=== PATIENT | female | born 1970 | race Caucasian/White ===

== ENCOUNTER 2019-10-24 19:46 | Inpatient (IN) | payer OTHER, SELFPAY ==
[~2019-10-24] VITALS: Ht 172.7 cm; Wt 131.5 kg
[2019-10-24 19:46] VITALS: BP_SYST 85
[~2019-10-24 19:46] MED LIST: MEPERIDINE HCL/PF 100 MG/ML AMP IM ONE; MIDAZOLAM HCL 5 MG/5 ML VIAL IVP ONE; NS IRRIG SOLN 1000 ML IR ONE; PROPOFOL 200MG/ 20ML VIAL (DIPRIVAN) IV ONE; SEVOFLURANE 15 MIN GAS INH ONE; fentaNYL CITRATE/PF 100 MCG/2 ML AMP IVP ONE
[2019-10-24] MEDS ORDERED: PIPERACILLIN/TAZO 3.38 GM in D5W 50 ML IV ONE (20:00)
[2019-10-24] MEDS ORDERED: VANCOMYCIN HCL 1,000 MG in D5W 250 ML IV ONE (20:00)
[2019-10-24] MEDS ORDERED: NS 1000 ML IV.SOLN IV ONE (20:00)
[2019-10-24 20:15] LABS: BILIRUBIN,URINE NEGATIVE (NEGATIVE); BLOOD, URINE 1+ (NEGATIVE); CLARITY/URINE TURBID (CLEAR); COLOR,URINE YELLOW (YELLOW); GLUCOSE,URINE 3+ (NEGATIVE); KETONES,URINE NEGATIVE (NEGATIVE); LEUKOCYTE ESTERASE ,URINE 1+ (NEGATIVE); NITRITE, URINE NEGATIVE (NEGATIVE); PH,URINE 5.5 (5.0-8.0); PROTEIN URINE 2+ (NEGATIVE); UROBILINOGEN,URINE 0.2 (0.2-1.0)
[2019-10-24 20:17] LABS: BASOPHILS # (AUTO) 0.1 K/uL (0.0-0.2); BASOPHILS % (AUTO) 0.4 % (0.0-2.0); EOSINOPHILS # (AUTO) 0.2 K/uL (0.0-0.4); EOSINOPHILS % (AUTO) 0.8 % (0.0-4.0); HEMATOCRIT 39.9 % (36-48); HEMOGLOBIN 12.9 g/dL (12.0-16.0); LYMPHOCYTES # (AUTO) 2.9 K/uL (1.0-5.5); LYMPHOCYTES % (AUTO) 15.5 % (20.5-51.5); MEAN CORPUSCULAR HEMOGLOBIN 29 pg (27-31); MEAN CORPUSCULAR HGB CONC 32 % (32-36); MEAN CORPUSCULAR VOLUME 91 fL (79.0-98.0); MONOCYTES # (AUTO) 0.7 K/uL (0.0-1.0); MONOCYTES % (AUTO) 3.8 % (1.7-9.3); NEUTROPHILS # (AUTO) 14.7 K/uL (1.8-7.7); NEUTROPHILS % (AUTO) 79.5 % (40.0-70.0); PLATELET COUNT (AUTO) 358 K/uL (130-430); RED BLOOD CELL COUNT(AUTO) 4.39 MIL/uL (4.2-6.2); RED CELL DISTRIBUTION WIDTH 13.4 % (9.0-15.0); WHITE BLOOD COUNT (AUTO) 18.5 K/uL (4.8-10.8)
[2019-10-24 20:26] LABS: BACTERIA,URINE MANY /HPF (None Seen); RBC,URINE 0-3 /HPF (0-3); WBC,URINE >100 /HPF (0-3)
[2019-10-24 20:26] LABS: CREATININE 2.96 mg/dL (0.55-1.30); POTASSIUM 4.7 mmol/L (3.5-5.1)
[2019-10-24 20:27] LABS: ALBUMIN 2.5 g/dL (3.4-4.8); TOTAL BILIRUBIN 0.9 mg/dL (0.0-1.0)
[2019-10-24 20:27] LABS: URINE AMORPHOUS URATE 3+ /HPF (None Seen)
[2019-10-24] MEDS ORDERED: VANCOMYCIN HCL 1000 MG/VIAL IV ONE (20:30)
[2019-10-24] MEDS ORDERED: PIPERACILLIN/TAZOBACTAM 3.375 GM/VIAL (ZOSYN) IV ONE (20:30)
[2019-10-24 20:35] LABS: PROTHROMBIN TIME 10.5 SECS (9.5-12.5)
[2019-10-24] MEDS ORDERED: MAGNESIUM SULFATE 50 ML IV ONE (20:45)
[2019-10-24] MEDS ORDERED: ONDANSETRON HCL 4 MG/2 ML VIAL IVP PRN (23:00)
[2019-10-24] MEDS ORDERED: ACETAMINOPHEN 325 MG TABLET PO PRN (23:00)
[2019-10-24] MEDS ORDERED: INSULIN ASPART 100 UNITS/ML, 10 ML VIAL SUBCUT ONE (23:00)
[2019-10-24] MEDS ORDERED: FAMOTIDINE 20 MG TABLET PO ONE (23:00)
[2019-10-24] MEDS ORDERED: ZOLPIDEM TARTRATE 5 MG TABLET PO PRN (23:30)
[2019-10-24] MEDS ORDERED: INSULIN Lispro 100 UNITS/ML VIAL (humaLOG) ONE (23:38)
[2019-10-25 00:16] VITALS: BP_SYST 101
[2019-10-25] MEDS: NACL 0.9% 1,000 ML IV SCH ×3 (01:15→20:27)
[2019-10-25] MEDS ORDERED: INSULIN Lispro 100 UNITS/ML VIAL (humaLOG) SUBCUT ONE (01:30)
[2019-10-25] MEDS: PIPERACILLIN/TAZOBACTAM 2.25 GM in NS 50 ML IV SCH ×4 (02:05→17:23)
[2019-10-25] MEDS ORDERED: PIPERACILLIN/TAZOBACTAM 2.25 GM VIAL IV ONE (02:08)
[2019-10-25] MEDS ORDERED: MORPHINE 2 MG/ML INJ. SYRINGE IVP PRN (03:00)
[2019-10-25] MEDS: HYDROcodone/ACETAMIN 5-325 MG TAB (NORCO/ VICODIN) PO PRN ×2 (03:25→09:05)
[2019-10-25] MEDS: INSULIN LISPRO SLIDING SCALE 100 UNITS/ML VIAL (humaLOG) SUBCUT PRN ×4 (06:54→22:35)
[2019-10-25 07:23] LABS: BASOPHILS # (AUTO) 0.1 K/uL (0.0-0.2); BASOPHILS % (AUTO) 0.4 % (0.0-2.0); EOSINOPHILS # (AUTO) 0.4 K/uL (0.0-0.4); EOSINOPHILS % (AUTO) 2.7 % (0.0-4.0); HEMATOCRIT 35.2 % (36-48); HEMOGLOBIN 11.5 g/dL (12.0-16.0); LYMPHOCYTES # (AUTO) 2.6 K/uL (1.0-5.5); LYMPHOCYTES % (AUTO) 18.5 % (20.5-51.5); MEAN CORPUSCULAR HEMOGLOBIN 29 pg (27-31); MEAN CORPUSCULAR HGB CONC 33 % (32-36); MEAN CORPUSCULAR VOLUME 89 fL (79.0-98.0); MONOCYTES # (AUTO) 0.4 K/uL (0.0-1.0); MONOCYTES % (AUTO) 3.1 % (1.7-9.3); NEUTROPHILS # (AUTO) 10.7 K/uL (1.8-7.7); NEUTROPHILS % (AUTO) 75.3 % (40.0-70.0); PLATELET COUNT (AUTO) 307 K/uL (130-430); RED BLOOD CELL COUNT(AUTO) 3.95 MIL/uL (4.2-6.2); RED CELL DISTRIBUTION WIDTH 13.6 % (9.0-15.0); WHITE BLOOD COUNT (AUTO) 14.2 K/uL (4.8-10.8)
[2019-10-25 07:40] LABS: ALBUMIN 2.1 g/dL (3.4-4.8); CALCIUM 8.1 mg/dL (8.4-11.0); CREATININE 2.18 mg/dL (0.55-1.30); POTASSIUM 3.7 mmol/L (3.5-5.1); THYROID STIMULATING HORMONE 0.43 uIu/mL (0.34-4.82); TOTAL BILIRUBIN 0.4 mg/dL (0.0-1.0)
[2019-10-25] MEDS ORDERED: INSULIN GLARGINE 100 UNITS/ML 10 ML VIAL SUBCUT ONE ×3 (08:15→22:30)
[2019-10-25 12:10] VITALS: BP_SYST 110
[2019-10-25] MEDS ORDERED: ALBUTEROL SULFATE 0.083% 2.5 MG/3 ML VIAL.NEB INH PRN (15:45)
[2019-10-25] MEDS ORDERED: ALPRAZolam 0.25 MG TABLET PO PRN (16:00)
[2019-10-25 18:55] VITALS: BP_SYST 114
[2019-10-25 19:00] VITALS: BP_SYST 99
[2019-10-25 20:00] VITALS: BP_SYST 99
[2019-10-25] MEDS: LINEZOLID 300 ML IV SCH (21:33)
[2019-10-26] VITALS: BP_SYST 98
[2019-10-26] MEDS ORDERED: cloNIDine HCL 0.1 MG TABLET PO PRN (00:15)
[2019-10-26] MEDS: PIPERACILLIN/TAZOBACTAM 2.25 GM in NS 50 ML IV SCH ×2 (00:21→06:07)
[2019-10-26 06:00] VITALS: BP_SYST 98
[2019-10-26] MEDS: NACL 0.9% 1,000 ML IV SCH ×2 (06:07→16:46)
[2019-10-26] MEDS: INSULIN LISPRO SLIDING SCALE 100 UNITS/ML VIAL (humaLOG) SUBCUT PRN ×4 (06:12→21:00)
[2019-10-26 07:30] LABS: BASOPHILS # (AUTO) 0.1 K/uL (0.0-0.2); BASOPHILS % (AUTO) 0.5 % (0.0-2.0); EOSINOPHILS # (AUTO) 0.5 K/uL (0.0-0.4); EOSINOPHILS % (AUTO) 4.6 % (0.0-4.0); HEMATOCRIT 34.3 % (36-48); HEMOGLOBIN 11.2 g/dL (12.0-16.0); LYMPHOCYTES % (AUTO) 17.6 % (20.5-51.5); MEAN CORPUSCULAR HEMOGLOBIN 29 pg (27-31); MEAN CORPUSCULAR HGB CONC 33 % (32-36); MEAN CORPUSCULAR VOLUME 89 fL (79.0-98.0); MONOCYTES # (AUTO) 0.3 K/uL (0.0-1.0); MONOCYTES % (AUTO) 2.7 % (1.7-9.3); NEUTROPHILS # (AUTO) 8.3 K/uL (1.8-7.7); NEUTROPHILS % (AUTO) 74.6 % (40.0-70.0); PLATELET COUNT (AUTO) 279 K/uL (130-430); RED BLOOD CELL COUNT(AUTO) 3.86 MIL/uL (4.2-6.2); RED CELL DISTRIBUTION WIDTH 13.6 % (9.0-15.0); WHITE BLOOD COUNT (AUTO) 11.1 K/uL (4.8-10.8)
[2019-10-26 07:38] LABS: CALCIUM 8.1 mg/dL (8.4-11.0); CREATININE 1.74 mg/dL (0.55-1.30); POTASSIUM 3.7 mmol/L (3.5-5.1); TOTAL BILIRUBIN 0.3 mg/dL (0.0-1.0)
[2019-10-26 08:00] VITALS: BP_SYST 94
[2019-10-26] MEDS ORDERED: INSULIN GLARGINE 100 UNITS/ML 10 ML VIAL SUBCUT ONE (09:15)
[2019-10-26] MEDS: LINEZOLID 300 ML IV SCH ×2 (09:59→21:05)
[2019-10-26] MEDS ORDERED: PIPERACILLIN/TAZOBACTAM 3.375 GM/ D5W 50 ML IV SCH ×2 (12:00)
[2019-10-26 12:15] VITALS: BP_SYST 118
[2019-10-26 16:15] VITALS: BP_SYST 96
[2019-10-26] MEDS: MORPHINE SULFATE 10 MG/ML VIAL IVP PRN (17:07)
[2019-10-26] MEDS: cefTRIAXone 1 GM in D5W 50 ML IV SCH (17:34)
[2019-10-26] MEDS: INSULIN GLARGINE 100 UNITS/ML 10 ML VIAL SUBCUT SCH (18:34)
[2019-10-26 20:30] VITALS: BP_SYST 97
[2019-10-27 00:03] VITALS: BP_SYST 118
[2019-10-27] MEDS: NACL 0.9% 1,000 ML IV SCH ×3 (03:20→22:15)
[2019-10-27] MEDS ORDERED: MAG-AL HYDROX/SIMETH 30 ML UDC PO ONE (06:00)
[2019-10-27] MEDS: INSULIN LISPRO SLIDING SCALE 100 UNITS/ML VIAL (humaLOG) SUBCUT PRN ×4 (06:25→21:45)
[2019-10-27 07:00] LABS: BASOPHILS # (AUTO) 0.1 K/uL (0.0-0.2); BASOPHILS % (AUTO) 0.6 % (0.0-2.0); EOSINOPHILS # (AUTO) 0.5 K/uL (0.0-0.4); EOSINOPHILS % (AUTO) 3.8 % (0.0-4.0); HEMATOCRIT 35.7 % (36-48); HEMOGLOBIN 11.8 g/dL (12.0-16.0); LYMPHOCYTES % (AUTO) 16.9 % (20.5-51.5); MEAN CORPUSCULAR HEMOGLOBIN 30 pg (27-31); MEAN CORPUSCULAR HGB CONC 33 % (32-36); MEAN CORPUSCULAR VOLUME 89 fL (79.0-98.0); MONOCYTES # (AUTO) 0.3 K/uL (0.0-1.0); MONOCYTES % (AUTO) 2.7 % (1.7-9.3); NEUTROPHILS # (AUTO) 9.2 K/uL (1.8-7.7); PLATELET COUNT (AUTO) 289 K/uL (130-430); RED BLOOD CELL COUNT(AUTO) 4.01 MIL/uL (4.2-6.2); RED CELL DISTRIBUTION WIDTH 13.3 % (9.0-15.0); WHITE BLOOD COUNT (AUTO) 12.1 K/uL (4.8-10.8)
[2019-10-27 07:27] LABS: ALBUMIN 2.1 g/dL (3.4-4.8); CALCIUM 8.5 mg/dL (8.4-11.0); CREATININE 1.55 mg/dL (0.55-1.30); POTASSIUM 4.2 mmol/L (3.5-5.1); TOTAL BILIRUBIN 0.2 mg/dL (0.0-1.0)
[2019-10-27 08:00] VITALS: BP_SYST 125
[2019-10-27] MEDS: INSULIN GLARGINE 100 UNITS/ML 10 ML VIAL SUBCUT SCH (08:00)
[2019-10-27] MEDS ORDERED: INSULIN GLARGINE 100 UNITS/ML 10 ML VIAL SUBCUT SCH ×2 (09:00→21:00)
[2019-10-27] MEDS: LINEZOLID 300 ML IV SCH ×2 (10:14→21:45)
[2019-10-27] MEDS: CITALOPRAM HYDROBROMIDE 20 MG TABLET PO SCH (10:15)
[2019-10-27 12:00] VITALS: BP_SYST 120
[2019-10-27 15:02] VITALS: BP_SYST 120
[2019-10-27 16:30] VITALS: BP_SYST 130
[2019-10-27] MEDS: cefTRIAXone 1 GM in D5W 50 ML IV SCH (16:51)
[2019-10-27 20:20] VITALS: BP_SYST 129
[2019-10-27] MEDS: INSULIN GLARGINE 100 UNITS/ML 10 ML VIAL SQ SCH (21:45)
[2019-10-28 00:58] VITALS: BP_SYST 120
[2019-10-28] MEDS: INSULIN LISPRO SLIDING SCALE 100 UNITS/ML VIAL (humaLOG) SUBCUT PRN ×4 (06:39→21:23)
[2019-10-28 08:00] VITALS: BP_SYST 143
[2019-10-28] MEDS ORDERED: INSULIN GLARGINE 100 UNITS/ML 10 ML VIAL SUBCUT SCH (08:00)
[2019-10-28] MEDS: INSULIN GLARGINE 100 UNITS/ML 10 ML VIAL SQ SCH (08:13)
[2019-10-28] MEDS: LINEZOLID 300 ML IV SCH ×2 (08:13→22:09)
[2019-10-28] MEDS: CITALOPRAM HYDROBROMIDE 20 MG TABLET PO SCH (08:13)
[2019-10-28] MEDS: NACL 0.9% 1,000 ML IV SCH ×2 (08:27→15:27)
[2019-10-28 12:01] VITALS: BP_SYST 116
[2019-10-28] MEDS: cefTRIAXone 1 GM in D5W 50 ML IV SCH (16:27)
[2019-10-28 16:31] VITALS: BP_SYST 124
[2019-10-28 20:00] VITALS: BP_SYST 119
[2019-10-28] MEDS: NYSTATIN 15 GM TOPICAL POWDER TP SCH (21:16)
[2019-10-28] MEDS: INSULIN GLARGINE 100 UNITS/ML 10 ML VIAL SUBCUT SCH (21:22)
[2019-10-28] MEDS ORDERED: LINEZOLID 300 ML IV ONE (21:53)
[2019-10-29 00:26] VITALS: BP_SYST 91
[2019-10-29] MEDS: NACL 0.9% 1,000 ML IV SCH ×2 (03:06→20:30)
[2019-10-29] MEDS: INSULIN LISPRO SLIDING SCALE 100 UNITS/ML VIAL (humaLOG) SUBCUT PRN ×4 (06:20→20:30)
[2019-10-29 06:24] LABS: ALBUMIN 2.1 g/dL (3.4-4.8); BASOPHILS # (AUTO) 0.1 K/uL (0.0-0.2); BASOPHILS % (AUTO) 0.7 % (0.0-2.0); CALCIUM 8.3 mg/dL (8.4-11.0); CREATININE 1.09 mg/dL (0.55-1.30); EOSINOPHILS # (AUTO) 0.3 K/uL (0.0-0.4); EOSINOPHILS % (AUTO) 3.5 % (0.0-4.0); HEMATOCRIT 34.3 % (36-48); HEMOGLOBIN 11.5 g/dL (12.0-16.0); LYMPHOCYTES # (AUTO) 1.9 K/uL (1.0-5.5); MEAN CORPUSCULAR HEMOGLOBIN 29 pg (27-31); MEAN CORPUSCULAR HGB CONC 33 % (32-36); MEAN CORPUSCULAR VOLUME 88 fL (79.0-98.0); MONOCYTES # (AUTO) 0.3 K/uL (0.0-1.0); MONOCYTES % (AUTO) 3.2 % (1.7-9.3); NEUTROPHILS # (AUTO) 7.3 K/uL (1.8-7.7); NEUTROPHILS % (AUTO) 73.6 % (40.0-70.0); PLATELET COUNT (AUTO) 272 K/uL (130-430); POTASSIUM 3.6 mmol/L (3.5-5.1); RED CELL DISTRIBUTION WIDTH 13.1 % (9.0-15.0); TOTAL BILIRUBIN 0.2 mg/dL (0.0-1.0); WHITE BLOOD COUNT (AUTO) 9.9 K/uL (4.8-10.8)
[2019-10-29 08:00] VITALS: BP_SYST 91
[2019-10-29] MEDS: LINEZOLID 300 ML IV SCH ×2 (08:21→20:14)
[2019-10-29] MEDS: CITALOPRAM HYDROBROMIDE 20 MG TABLET PO SCH (08:22)
[2019-10-29] MEDS: NYSTATIN 15 GM TOPICAL POWDER TP SCH ×2 (08:22→20:22)
[2019-10-29] MEDS: INSULIN GLARGINE 100 UNITS/ML 10 ML VIAL SUBCUT SCH ×2 (08:25→20:45)
[2019-10-29] MEDS ORDERED: COMMUNICATION ORDER XX ONE (09:00)
[2019-10-29] MEDS ORDERED: METOCLOPRAMIDE HCL 10 MG/2 ML VIAL IVP ONE (10:00)
[2019-10-29 12:21] VITALS: BP_SYST 97
[2019-10-29] MEDS ORDERED: ONDANSETRON HCL 4 MG/2 ML VIAL IVP PRN ×2 (14:45→15:00)
[2019-10-29] MEDS ORDERED: NACL 0.9% 1,000 ML IV SCH (14:57)
[2019-10-29] MEDS ORDERED: MIDAZOLAM HCL 5 MG/ML VIAL (VERSED) IV ONE (15:00)
[2019-10-29] MEDS ORDERED: NS IRRIG SOLN 1000 ML IR ONE (15:00)
[2019-10-29] MEDS ORDERED: fentaNYL CITRATE/PF 100 MCG/2 ML AMP ONE (15:00)
[2019-10-29] MEDS ORDERED: BUPIVACAINE /EPINEPHRINE/PF 0.25% 30 ML VIAL INJ ONE (15:00)
[2019-10-29] MEDS ORDERED: MEPERIDINE HCL/PF 100 MG/ML AMP ONE (15:00)
[2019-10-29] MEDS ORDERED: HYDROmorphone 2 MG/ML VIAL IVP PRN (15:00)
[2019-10-29] MEDS ORDERED: NS 1000 ML IV.SOLN IV ONE (15:00)
[2019-10-29] MEDS ORDERED: SEVOFLURANE 15 MIN GAS INH ONE (15:00)
[2019-10-29] MEDS ORDERED: MEPERIDINE HCL/PF 25 MG/ML DISP.SYRIN IVP PRN (15:00)
[2019-10-29] MEDS ORDERED: HYDROmorphone 1 MG INJ. 1 MG/ML AMPUL ONE (15:25)
[2019-10-29] MEDS: MORPHINE SULFATE 10 MG/ML VIAL IVP PRN (16:41)
[2019-10-29] MEDS: CEFAZOLIN 1 GM IVPB PREMIX 50 ML IV SCH ×2 (16:52→22:31)
[2019-10-29 17:07] VITALS: BP_SYST 158
[2019-10-29] MEDS: cefTRIAXone 1 GM in D5W 50 ML IV SCH (18:13)
[2019-10-29 20:20] VITALS: BP_SYST 131
[2019-10-29] MEDS: BALSAM PERU/CASTOR OIL 60 GM OINT...G. TP SCH (20:45)
[2019-10-30 00:01] VITALS: BP_SYST 126
[2019-10-30] MEDS: HYDROcodone/ACETAMIN 5-325 MG TAB (NORCO/ VICODIN) PO PRN ×2 (00:56→05:07)
[2019-10-30 06:13] LABS: BASOPHILS # (AUTO) 0.1 K/uL (0.0-0.2); BASOPHILS % (AUTO) 0.5 % (0.0-2.0); EOSINOPHILS # (AUTO) 0.3 K/uL (0.0-0.4); EOSINOPHILS % (AUTO) 3.2 % (0.0-4.0); HEMATOCRIT 34.9 % (36-48); HEMOGLOBIN 11.5 g/dL (12.0-16.0); LYMPHOCYTES # (AUTO) 1.9 K/uL (1.0-5.5); LYMPHOCYTES % (AUTO) 18.7 % (20.5-51.5); MEAN CORPUSCULAR HEMOGLOBIN 29 pg (27-31); MEAN CORPUSCULAR HGB CONC 33 % (32-36); MEAN CORPUSCULAR VOLUME 88 fL (79.0-98.0); MONOCYTES # (AUTO) 0.3 K/uL (0.0-1.0); MONOCYTES % (AUTO) 3.4 % (1.7-9.3); NEUTROPHILS # (AUTO) 7.4 K/uL (1.8-7.7); NEUTROPHILS % (AUTO) 74.2 % (40.0-70.0); PLATELET COUNT (AUTO) 277 K/uL (130-430); RED BLOOD CELL COUNT(AUTO) 3.96 MIL/uL (4.2-6.2); RED CELL DISTRIBUTION WIDTH 13.2 % (9.0-15.0)
[2019-10-30] MEDS: INSULIN LISPRO SLIDING SCALE 100 UNITS/ML VIAL (humaLOG) SUBCUT PRN ×4 (06:24→20:23)
[2019-10-30] MEDS: NACL 0.9% 1,000 ML IV SCH ×3 (06:25→20:18)
[2019-10-30 06:53] LABS: ALBUMIN 2.2 g/dL (3.4-4.8); CALCIUM 8.2 mg/dL (8.4-11.0); CREATININE 1.13 mg/dL (0.55-1.30); POTASSIUM 3.5 mmol/L (3.5-5.1); TOTAL BILIRUBIN 0.2 mg/dL (0.0-1.0)
[2019-10-30 08:00] VITALS: BP_SYST 118
[2019-10-30] MEDS: BALSAM PERU/CASTOR OIL 60 GM OINT...G. TP SCH (08:21)
[2019-10-30] MEDS: LINEZOLID 300 ML IV SCH ×2 (08:21→20:17)
[2019-10-30] MEDS: NYSTATIN 15 GM TOPICAL POWDER TP SCH ×2 (08:22→20:18)
[2019-10-30] MEDS: CITALOPRAM HYDROBROMIDE 20 MG TABLET PO SCH (08:22)
[2019-10-30] MEDS: INSULIN GLARGINE 100 UNITS/ML 10 ML VIAL SUBCUT SCH ×2 (08:24→20:24)
[2019-10-30 12:32] VITALS: BP_SYST 140
[2019-10-30 16:13] VITALS: BP_SYST 130
[2019-10-30] MEDS: cefTRIAXone 1 GM in D5W 50 ML IV SCH (17:43)
[2019-10-30 20:15] VITALS: BP_SYST 145
[2019-10-31 00:35] VITALS: BP_SYST 134
[2019-10-31] MEDS: NACL 0.9% 1,000 ML IV SCH ×2 (06:32→17:13)
[2019-10-31] MEDS: INSULIN LISPRO SLIDING SCALE 100 UNITS/ML VIAL (humaLOG) SUBCUT PRN ×4 (06:36→21:13)
[2019-10-31 08:00] VITALS: BP_SYST 155
[2019-10-31] MEDS: CITALOPRAM HYDROBROMIDE 20 MG TABLET PO SCH (08:43)
[2019-10-31] MEDS: LINEZOLID 300 ML IV SCH ×2 (08:43→21:05)
[2019-10-31] MEDS: BALSAM PERU/CASTOR OIL 60 GM OINT...G. TP SCH (08:44)
[2019-10-31] MEDS: NYSTATIN 15 GM TOPICAL POWDER TP SCH ×3 (08:44→21:05)
[2019-10-31] MEDS: INSULIN GLARGINE 100 UNITS/ML 10 ML VIAL SUBCUT SCH ×2 (08:46→21:12)
[2019-10-31 12:00] VITALS: BP_SYST 159
[2019-10-31 16:11] VITALS: BP_SYST 144
[2019-10-31] MEDS: cefTRIAXone 1 GM in D5W 50 ML IV SCH (17:13)
[2019-10-31 20:00] VITALS: BP_SYST 139
[2019-11-01] VITALS: BP_SYST 107
[2019-11-01] MEDS: HYDROcodone/ACETAMIN 5-325 MG TAB (NORCO/ VICODIN) PO PRN (07:51)
[2019-11-01 08:00] VITALS: BP_SYST 99
[2019-11-01] MEDS: CITALOPRAM HYDROBROMIDE 20 MG TABLET PO SCH (08:59)
[2019-11-01] MEDS: INSULIN GLARGINE 100 UNITS/ML 10 ML VIAL SUBCUT SCH ×2 (09:01→21:22)
[2019-11-01] MEDS: BALSAM PERU/CASTOR OIL 60 GM OINT...G. TP SCH (09:03)
[2019-11-01] MEDS: NYSTATIN 15 GM TOPICAL POWDER TP SCH ×2 (09:03→21:23)
[2019-11-01] MEDS: INSULIN LISPRO SLIDING SCALE 100 UNITS/ML VIAL (humaLOG) SUBCUT PRN ×2 (11:53→17:31)
[2019-11-01 11:58] VITALS: BP_SYST 150
[2019-11-01 15:29] VITALS: BP_SYST 148
[2019-11-01] MEDS: cefTRIAXone 1 GM in D5W 50 ML IV SCH (16:54)
[2019-11-01] MEDS: MORPHINE SULFATE 10 MG/ML VIAL IVP PRN (16:54)
[2019-11-01] MEDS ORDERED: HYDROcodone/ACETAMIN 5-325 MG TAB (NORCO/ VICODIN) PO PRN (17:15)
[2019-11-02] VITALS (7 sets, daily range): BP systolic 92–125
[2019-11-02 06:20] LABS: CALCIUM 8.9 mg/dL (8.4-11.0); CREATININE 1.17 mg/dL (0.55-1.30); POTASSIUM 3.7 mmol/L (3.5-5.1)
[2019-11-02] MEDS: CITALOPRAM HYDROBROMIDE 20 MG TABLET PO SCH (09:45)
[2019-11-02] MEDS: INSULIN GLARGINE 100 UNITS/ML 10 ML VIAL SUBCUT SCH ×2 (09:47→21:36)
[2019-11-02] MEDS: NYSTATIN 15 GM TOPICAL POWDER TP SCH ×2 (09:49→21:00)
[2019-11-02] MEDS: BALSAM PERU/CASTOR OIL 60 GM OINT...G. TP SCH (09:49)
[2019-11-02] MEDS: INSULIN LISPRO SLIDING SCALE 100 UNITS/ML VIAL (humaLOG) SUBCUT PRN ×2 (11:53→21:35)
[2019-11-02] MEDS: traZODone HCL 50 MG TABLET (DESYREL) PO SCH (21:38)
[2019-11-03 01:08] VITALS: BP_SYST 98
[2019-11-03] MEDS: INSULIN LISPRO SLIDING SCALE 100 UNITS/ML VIAL (humaLOG) SUBCUT PRN ×4 (06:10→23:09)
[2019-11-03 08:00] VITALS: BP_SYST 102
[2019-11-03] MEDS: CITALOPRAM HYDROBROMIDE 20 MG TABLET PO SCH (08:39)
[2019-11-03] MEDS: NYSTATIN 15 GM TOPICAL POWDER TP SCH ×2 (08:40→21:00)
[2019-11-03] MEDS: BALSAM PERU/CASTOR OIL 60 GM OINT...G. TP SCH (08:40)
[2019-11-03] MEDS: INSULIN GLARGINE 100 UNITS/ML 10 ML VIAL SUBCUT SCH ×2 (08:44→23:08)
[2019-11-03 12:39] VITALS: BP_SYST 93
[2019-11-03 16:50] VITALS: BP_SYST 94
[2019-11-03 20:00] VITALS: BP_SYST 97
[2019-11-03] MEDS: traZODone HCL 50 MG TABLET (DESYREL) PO SCH (23:04)
[2019-11-03 23:41] VITALS: BP_SYST 97
[2019-11-04 05:47] LABS: CALCIUM 9.1 mg/dL (8.4-11.0); CREATININE 1.22 mg/dL (0.55-1.30); POTASSIUM 3.9 mmol/L (3.5-5.1)
[2019-11-04] MEDS: INSULIN LISPRO SLIDING SCALE 100 UNITS/ML VIAL (humaLOG) SUBCUT PRN ×3 (06:19→20:48)
[2019-11-04 08:00] VITALS: BP_SYST 111
[2019-11-04] MEDS: CITALOPRAM HYDROBROMIDE 20 MG TABLET PO SCH (09:00)
[2019-11-04] MEDS: INSULIN GLARGINE 100 UNITS/ML 10 ML VIAL SUBCUT SCH ×2 (09:00→20:47)
[2019-11-04] MEDS: NYSTATIN 15 GM TOPICAL POWDER TP SCH ×2 (11:42→20:57)
[2019-11-04] MEDS: BALSAM PERU/CASTOR OIL 60 GM OINT...G. TP SCH (11:43)
[2019-11-04 12:00] VITALS: BP_SYST 104
[2019-11-04] MEDS ORDERED: fentaNYL CITRATE/PF 100 MCG/2 ML AMP IVP PRN ×2 (13:30)
[2019-11-04] MEDS ORDERED: ONDANSETRON HCL 4 MG/2 ML VIAL IVP PRN ×2 (13:30→14:15)
[2019-11-04] MEDS: ceFAZolin SODIUM 1 GM in D5W 50 ML IV SCH ×2 (14:00→21:05)
[2019-11-04] MEDS ORDERED: ACETAMINOPHEN 325 MG TABLET PO PRN (14:15)
[2019-11-04] MEDS ORDERED: HYDROcodone/ACETAMIN 5-325 MG TAB (NORCO/ VICODIN) PO PRN (14:15)
[2019-11-04 16:35] VITALS: BP_SYST 116
[2019-11-04] MEDS: NACL 0.9% 1,000 ML IV SCH (17:55)
[2019-11-04 20:00] VITALS: BP_SYST 97
[2019-11-04] MEDS: traZODone HCL 50 MG TABLET (DESYREL) PO SCH (20:46)
[2019-11-04] MEDS: HYDROmorphone 2 MG/ML VIAL IVP PRN (20:58)
[2019-11-04] MEDS ORDERED: CEFAZOLIN 1 GM IVPB PREMIX 100 ML IV ONE (21:14)
[2019-11-04 23:22] VITALS: BP_SYST 105
[2019-11-05] MEDS: NACL 0.9% 1,000 ML IV SCH ×3 (00:10→15:06)
[2019-11-05] MEDS: HYDROmorphone 2 MG/ML VIAL IVP PRN ×3 (04:35→22:10)
[2019-11-05] MEDS: ceFAZolin SODIUM 1 GM in D5W 50 ML IV SCH ×3 (05:41→22:06)
[2019-11-05] MEDS: INSULIN LISPRO SLIDING SCALE 100 UNITS/ML VIAL (humaLOG) SUBCUT PRN ×3 (06:11→22:07)
[2019-11-05 07:13] LABS: BASOPHILS % (AUTO) 0.5 % (0.0-2.0); EOSINOPHILS # (AUTO) 0.3 K/uL (0.0-0.4); EOSINOPHILS % (AUTO) 3.5 % (0.0-4.0); HEMATOCRIT 34.6 % (36-48); HEMOGLOBIN 11.2 g/dL (12.0-16.0); LYMPHOCYTES # (AUTO) 2.2 K/uL (1.0-5.5); MEAN CORPUSCULAR HEMOGLOBIN 29 pg (27-31); MEAN CORPUSCULAR HGB CONC 32 % (32-36); MEAN CORPUSCULAR VOLUME 90 fL (79.0-98.0); MONOCYTES # (AUTO) 0.5 K/uL (0.0-1.0); NEUTROPHILS # (AUTO) 6.2 K/uL (1.8-7.7); PLATELET COUNT (AUTO) 239 K/uL (130-430); RED BLOOD CELL COUNT(AUTO) 3.84 MIL/uL (4.2-6.2); WHITE BLOOD COUNT (AUTO) 9.2 K/uL (4.8-10.8)
[2019-11-05 08:06] VITALS: BP_SYST 92
[2019-11-05 08:20] LABS: ALBUMIN 2.4 g/dL (3.4-4.8); CALCIUM 8.2 mg/dL (8.4-11.0); CREATININE 1.22 mg/dL (0.55-1.30); POTASSIUM 3.7 mmol/L (3.5-5.1); TOTAL BILIRUBIN 0.3 mg/dL (0.0-1.0)
[2019-11-05] MEDS: CITALOPRAM HYDROBROMIDE 20 MG TABLET PO SCH (08:52)
[2019-11-05] MEDS: INSULIN GLARGINE 100 UNITS/ML 10 ML VIAL SUBCUT SCH ×2 (08:55→22:05)
[2019-11-05 08:56] VITALS: BP_SYST 92
[2019-11-05] MEDS: BALSAM PERU/CASTOR OIL 60 GM OINT...G. TP SCH (08:56)
[2019-11-05] MEDS: NYSTATIN 15 GM TOPICAL POWDER TP SCH ×2 (08:57→22:10)
[2019-11-05 12:17] VITALS: BP_SYST 108
[2019-11-05 16:18] VITALS: BP_SYST 102
[2019-11-05] MEDS: traZODone HCL 50 MG TABLET (DESYREL) PO SCH (22:00)
[2019-11-06 00:12] VITALS: BP_SYST 129
[2019-11-06] MEDS: ceFAZolin SODIUM 1 GM in D5W 50 ML IV SCH ×3 (06:28→21:52)
[2019-11-06] MEDS: INSULIN LISPRO SLIDING SCALE 100 UNITS/ML VIAL (humaLOG) SUBCUT PRN ×4 (06:34→22:03)
[2019-11-06 08:00] VITALS: BP_SYST 111
[2019-11-06] MEDS: NYSTATIN 15 GM TOPICAL POWDER TP SCH ×2 (10:01→21:54)
[2019-11-06] MEDS: BALSAM PERU/CASTOR OIL 60 GM OINT...G. TP SCH (10:01)
[2019-11-06] MEDS: CITALOPRAM HYDROBROMIDE 20 MG TABLET PO SCH (10:02)
[2019-11-06] MEDS: INSULIN GLARGINE 100 UNITS/ML 10 ML VIAL SUBCUT SCH ×2 (10:04→22:01)
[2019-11-06] MEDS: HYDROmorphone 1 MG INJ. 1 MG/ML AMPUL IVP PRN ×2 (10:52→15:36)
[2019-11-06 12:17] VITALS: BP_SYST 94
[2019-11-06 15:36] VITALS: BP_SYST 119
[2019-11-06 16:30] VITALS: BP_SYST 96
[2019-11-06 20:00] VITALS: BP_SYST 93
[2019-11-06] MEDS: traZODone HCL 50 MG TABLET (DESYREL) PO SCH (21:51)
[2019-11-06] MEDS: HYDROmorphone 2 MG/ML VIAL IVP PRN (22:12)
[2019-11-07 01:20] VITALS: BP_SYST 98
[2019-11-07] MEDS: ceFAZolin SODIUM 1 GM in D5W 50 ML IV SCH ×3 (06:11→21:23)
[2019-11-07] MEDS: HYDROmorphone 1 MG INJ. 1 MG/ML AMPUL IVP PRN ×3 (06:18→21:35)
[2019-11-07] MEDS: INSULIN LISPRO SLIDING SCALE 100 UNITS/ML VIAL (humaLOG) SUBCUT PRN ×4 (06:18→21:43)
[2019-11-07 08:36] VITALS: BP_SYST 116
[2019-11-07] MEDS: CITALOPRAM HYDROBROMIDE 20 MG TABLET PO SCH (08:42)
[2019-11-07] MEDS: INSULIN GLARGINE 100 UNITS/ML 10 ML VIAL SUBCUT SCH ×2 (08:44→21:21)
[2019-11-07] MEDS: NYSTATIN 15 GM TOPICAL POWDER TP SCH ×2 (08:50→21:24)
[2019-11-07] MEDS: BALSAM PERU/CASTOR OIL 60 GM OINT...G. TP SCH (08:53)
[2019-11-07 12:11] VITALS: BP_SYST 122
[2019-11-07 16:00] VITALS: BP_SYST 113
[2019-11-07 19:50] VITALS: BP_SYST 104
[2019-11-07] MEDS: traZODone HCL 50 MG TABLET (DESYREL) PO SCH (21:12)
[2019-11-08] VITALS (7 sets, daily range): BP systolic 101–135
[2019-11-08] MEDS: ceFAZolin SODIUM 1 GM in D5W 50 ML IV SCH ×2 (05:52→13:11)
[2019-11-08] MEDS: HYDROmorphone 1 MG INJ. 1 MG/ML AMPUL IVP PRN ×3 (06:25→20:52)
[2019-11-08] MEDS: CITALOPRAM HYDROBROMIDE 20 MG TABLET PO SCH (08:57)
[2019-11-08] MEDS: INSULIN GLARGINE 100 UNITS/ML 10 ML VIAL SUBCUT SCH ×2 (08:59→20:46)
[2019-11-08] MEDS: NYSTATIN 15 GM TOPICAL POWDER TP SCH ×2 (09:01→20:37)
[2019-11-08] MEDS: BALSAM PERU/CASTOR OIL 60 GM OINT...G. TP SCH (09:01)
[2019-11-08] MEDS: INSULIN LISPRO SLIDING SCALE 100 UNITS/ML VIAL (humaLOG) SUBCUT PRN ×2 (11:57→20:54)
[2019-11-08] MEDS: traZODone HCL 50 MG TABLET (DESYREL) PO SCH (20:36)
== END 2019-11-08 22:50 | DRG 710 ==
LOC: SED 19:46 → STU 23:04 → EEVIPCON 23:04 → STU 23:37 → SMU 10-31 18:31
PROVIDERS: ADMIT Internal Medicine; ATTEND Internal Medicine
PROC: 0H9U00Z Drainage of Left Breast with Drainage Device, Open Approach (ICD-10-PCS; 2019-11-04)
PROC: 0HBU0ZZ Excision of Left Breast, Open Approach (ICD-10-PCS; principal; 2019-11-04 14:00)
DX: A41.9 Sepsis, unspecified organism (principal); M72.6 Necrotizing fasciitis; E43 Unspecified severe protein-calorie malnutrition; N17.0 Acute kidney failure with tubular necrosis; R65.21 Severe sepsis with septic shock; E87.2 Acidosis; D05.12 Intraductal carcinoma in situ of left breast; E11.65 Type 2 diabetes mellitus with hyperglycemia; E66.01 Morbid (severe) obesity due to excess calories; E87.1 Hypo-osmolality and hyponatremia; F32.9 Major depressive disorder, single episode, unspecified; G47.00 Insomnia, unspecified; E88.09 Other disorders of plasma-protein metabolism, not elsewhere classified; L30.4 Erythema intertrigo; N30.00 Acute cystitis without hematuria; Z20.828 Contact with and (suspected) exposure to other viral communicable diseases; B96.4 Proteus (mirabilis) (morganii) as the cause of diseases classified elsewhere; I10 Essential (primary) hypertension; J44.9 Chronic obstructive pulmonary disease, unspecified; N61.1 Abscess of the breast and nipple; Z59.0 Homelessness; Z80.8 Family history of malignant neoplasm of other organs or systems; Z90.49 Acquired absence of other specified parts of digestive tract; Z68.41 Body mass index [BMI] 40.0-44.9, adult
CPT/HCPCS: 36415; 36600; 71045; 76642; 80048; 80053; 81000-TC; 82009-TC; 82803-TC; 82962; 83036; 83605; 83735-TC; 83880; 84443-TC; 84484; 85025; 85610-TC; 85730-TC; 86886; 86900; 86901; 87040-TC; 87070-TC; 87075-TC; 87081; 87086; 87186-TC; 88305; 88307; 88341; 88342; 88360; 93005; 93306; 96365; 96368; 97110-GP; 97116-GP; 97530-GP; 99291; G0378; J0690; J0696; J1170; J1815; J2020; J2175; J2250; J2270; J2543; J2704; J2765; J3010; J3370; J3475; J3490; J7030; J7042; J7060; J7120; U0002; U0003-CS